=== PATIENT | female | born 1965 | race Caucasian/White ===

== ENCOUNTER → 2016-02-18 | Outpatient (CLI) | payer BC ==
--- NOTE | 2016-02-19 09:57 | MM ---
Reason for exam: screening (asymptomatic). Last mammogram was performed 5 years and 2 months ago. History: Family history of breast cancer in maternal aunt. Benign excisional biopsy of the right breast, June 15, 1998. Physical Findings: A clinical breast exam by your physician is recommended on an annual basis and results should be correlated with mammographic findings. MG Screening Mammo w CAD Bilateral CC and MLO view(s) were taken. Prior study comparison: December 07, 2010, bilateral digital screening mammo w/CAD. February 27, 2007, bilateral screening mammogram w/CAD. The breast tissue is heterogeneously dense. This may lower the sensitivity of mammography. No suspicious calcifications are seen. Increased nodularity upper outer left breast. This finding is changed when compared with previous exams. ASSESSMENT: Incomplete: need additional imaging evaluation, BI-RAD 0 RECOMMENDATION: Special view mammogram of the left breast. If lesion persists on supplemental views, image directed ultrasound is recommended. [facility] will attempt to contact patient to return for supplemental views and ultrasound if indicated.
== END | disposition home or self-care (01) ==
LOC: RADMAMWWP 10:47
PROVIDERS: ATTEND Obstetrics & Gynecology
DX: Z12.31 Encounter for screening mammogram for malignant neoplasm of breast (principal); Z80.3 Family history of malignant neoplasm of breast

== ENCOUNTER → 2016-02-26 | Outpatient (CLI) | payer BC ==
--- NOTE | 2016-02-26 11:39 | MM ---
Reason for exam: additional evaluation requested from abnormal screening. Last mammogram was performed less than 1 month ago. History: Family history of breast cancer in maternal aunt. Benign excisional biopsy of the right breast, June 15, 1998. Physical Findings: Nurse did not find any significant physical abnormalities on exam. MG 3D Work Up W/Cad LT CC and MLO view(s) were taken of the left breast. Prior study comparison: February 18, 2016, bilateral MG screening mammo w CAD. December 07, 2010, bilateral digital screening mammo w/CAD. Persistent ill defined density upper outer quadrant left breast, 9.5cm from nipple. These results were verbally communicated with the patient and result sheet given to the patient on 02/26/16. ASSESSMENT: Incomplete: need additional imaging evaluation, BI-RAD 0 RECOMMENDATION: Ultrasound of the left breast.
--- NOTE | 2016-02-26 11:41 | USB ---
Reason for exam: additional evaluation requested from abnormal screening. History: Family history of breast cancer in maternal aunt. Benign excisional biopsy of the right breast, June 15, 1998. US Breast Workup Limited LT Left breast ultrasound demonstrates a 0.4 x 0.3 x 0.4cm oval, cystic lesion at 1 o'clock. These results were verbally communicated with the patient and result sheet given to the patient on 02/26/16. ASSESSMENT: Probably benign, BI-RAD 3 RECOMMENDATION: Follow-up diagnostic mammogram and ultrasound of the left breast in 6 months.
== END | disposition home or self-care (01) ==
LOC: RADMAMWWP 10:06
PROVIDERS: ATTEND Obstetrics & Gynecology
DX: R92.8 Other abnormal and inconclusive findings on diagnostic imaging of breast (principal)
CPT/HCPCS: 76642; G0206; G0279

== ENCOUNTER → 2017-09-18 | Outpatient (CLI) | payer BC ==
--- NOTE | 2017-09-18 15:46 | XR ---
EXAMINATION TYPE: XR ankle complete RT DATE OF EXAM: 09/18/2017 COMPARISON: NONE HISTORY: pain and swelling FINDINGS: Three views of the ankle demonstrate the ankle mortise to be intact and symmetric. The joint spaces are preserved. The osseous structures are intact. Soft tissue swelling noted. IMPRESSION: 1. No definite acute fracture or dislocation, if symptoms persist follow-up study in 7 to 10 days wou ld be suggested.
== END | disposition home or self-care (01) ==
LOC: RADXRMAIN 15:23
PROVIDERS: ATTEND Family Medicine
DX: M25.571 Pain in right ankle and joints of right foot (principal)

== ENCOUNTER → 2017-09-27 | Outpatient (CLI) | payer BC ==
[2017-09-27 12:56] LABS: Basophils % (A) 0 %; Eosinophils # (A) 0.1 k/uL (0-0.7); Eosinophils % (A) 1 %; HCT 41.2 % (34.0-46.0); HGB 13.2 gm/dL (11.4-16.0); Lymphocytes # (A) 1.6 k/uL (1.0-4.8); Lymphocytes % (A) 26 %; MCH 30.5 pg (25.0-35.0); MCHC 32.1 g/dL (31.0-37.0); MCV 95.2 fL (80.0-100.0); Mean Platelet Volume 6.9; Monocytes # (A) 0.5 k/uL (0-1.0); Monocytes % (A) 8 %; Neutrophils % (A) 63 %; Platelet Count 281 k/uL (150-450); RBC 4.33 m/uL (3.80-5.40); WBC 6.3 k/uL (3.8-10.6)
[2017-09-27 14:31] LABS: Erythrocyte Sedimentation Rate 9 mm/hr (0-20)
[2017-09-27 19:01] LABS: Rheumatoid Factor 8 IU/mL (0-15)
[2017-09-28 12:15] LABS: HLA B27 NEGATIVE
== END | disposition home or self-care (01) ==
LOC: LABWHC1 12:19
PROVIDERS: ATTEND Orthopaedic Surgery
DX: M25.571 Pain in right ankle and joints of right foot (principal)
CPT/HCPCS: 36415; 85025; 85652; 86038; 86140; 86431; 86812

== ENCOUNTER 2017-11-01 08:27 | Day surgery (SDC) | payer BC ==
[2017-10-27 15:51] VITALS: BMI 25.0
[~2017-11-01 08:27] MED LIST: HYDROmorphone 0.5 MG/0.5 ML SYRINGE IVP PRN; LACTATED RINGERS 1,000 ML IV SCH; LIDOCAINE 1% 20 ML VIAL (10MG/ML) FOR IV START INTRADERMA PRN
[2017-11-01 09:40] VITALS: RESP 16; TEMP 98.1
[2017-11-01] MEDS ORDERED: PROPOFOL 10 MG/ML 20 ML VIAL IV ONE (09:56)
[2017-11-01] MEDS ORDERED: LIDOCAINE 1% INJ 10MG/ML (20 ML MDV) ONE (09:56)
--- NOTE | 2017-11-01 10:08 | P.PCN ---
Date of Procedure: 11/01/17 Procedure(s) Performed: BRIEF HISTORY: Patient is a 51-year-old, pleasant,, scheduled for an upper endoscopy as a part of value should a history of GERD and intermittent dysphagia to solids. PROCEDURE PERFORMED: Esophagogastroduodenoscopy with biopsy. PREOPERATIVE DIAGNOSIS: She of GERD/intermittent dysphagia to solids. IV sedation per anesthesia. PROCEDURE: After informed consent was obtained, the patient was brought into the endoscopy unit. IV sedation was administered by Anesthesia under continuous monitoring. Initially the Olympus GIF-140 video endoscope was inserted into the mouth. Esophagus intubated without any difficulty. It was gradually advanced into the stomach and duodenum and carefully examined. The bulb and the second part of the duodenum appeared normal. The scope at this time was withdrawn to the stomach, adequately insufflated with air, and upon careful examination, mucosa of the antrum, had scattered erosions and biopsies were done from this area. The body, cardia and the fundus appeared normal. The scope was then withdrawn into the esophagus. The GE junction was located at 39 cm from the incisors. There was once were visualized and the GE junction consistent with LA grade a reflux esophagitis. The esophagus appeared normal. There were no esophageal stricture seen and the patient tolerated the procedure well. IMPRESSION: 1. Normal-appearing esophagus with no evidence of esophageal stricture. Mild reflux esophagitis. 2. Antral erosive gastritis. RECOMMENDATIONS: The findings of this examination were discussed with the patient well as his family. She will continue with omeprazole 20 mg daily and follow antireflux measures. She will also advised to follow with the biopsy results. She'll be seen in the office in 3-4 weeks.
[2017-11-01 10:33] VITALS: PULSE 56
[2017-11-01 10:56] VITALS: BP 120/60
== END 2017-11-01 11:12 | disposition home or self-care (01) ==
LOC: ORWHC2ENDO 08:27
PROVIDERS: ATTEND Internal Medicine Gastroenterology
DX: K29.50 Unspecified chronic gastritis without bleeding (principal); K21.0 Gastro-esophageal reflux disease with esophagitis; E78.5 Hyperlipidemia, unspecified; E07.9 Disorder of thyroid, unspecified; Z79.890 Hormone replacement therapy; Z79.899 Other long term (current) drug therapy
CPT/HCPCS: 81025; 88305; 43239; J2001; J2704

== ENCOUNTER → 2018-07-18 | Outpatient (CLI) | payer BC ==
--- NOTE | 2018-07-18 11:12 | MM ---
Reason for exam: additional evaluation requested from prior study. Last mammogram was performed 2 years and 5 months ago. History: Patient history of other cancer. Family history of breast cancer in maternal aunt. Benign excisional biopsy of the right breast, June 15, 1998. Physical Findings: Nurse did not find any significant physical abnormalities on exam. MG 3D Diag Mammo W/Cad CARTER Bilateral CC and MLO view(s) were taken. Prior study comparison: February 26, 2016, left breast MG 3d work up w/cad LT. February 18, 2016, bilateral MG screening mammo w CAD. The breast tissue is heterogeneously dense. This may lower the sensitivity of mammography. No suspicious abnormality. Stable left lateral posterior depth asymmetry. These results were verbally communicated with the patient and result sheet given to the patient on 07/18/18. ASSESSMENT: Benign, BI-RAD 2 RECOMMENDATION: Routine screening mammogram of both breasts in 1 year.
--- NOTE | 2018-07-18 11:13 | USB ---
Reason for exam: additional evaluation requested from prior study. History: Patient history of other cancer. Family history of breast cancer in maternal aunt. Benign excisional biopsy of the right breast, June 15, 1998. US Breast LT Left complete breast ultrasound includes all four quadrants, the retroareolar region and axilla. Finding demonstrates a 0.5 x 0.4 x 0.5cm benign, cystic lesion at 1 o'clock. These results were verbally communicated with the patient and result sheet given to the patient on 07/18/18. ASSESSMENT: Benign, BI-RAD 2 RECOMMENDATION: Routine screening mammogram of both breasts in 1 year.
== END | disposition home or self-care (01) ==
LOC: RADMAMWWP 09:18
PROVIDERS: ATTEND Obstetrics & Gynecology
DX: R92.8 Other abnormal and inconclusive findings on diagnostic imaging of breast (principal)
CPT/HCPCS: 77062; 77066

== ENCOUNTER → 2018-11-01 | Outpatient (CLI) | payer BC ==
--- NOTE | 2018-11-02 09:41 | XR ---
EXAMINATION TYPE: XR thoraco lumbar junction DATE OF EXAM: 11/01/2018 COMPARISON: NONE HISTORY: Back pain TECHNIQUE: 2 views submitted of the thoracolumbar junction FINDINGS: Surgical clips in the gallbladder fossa. Vertebral body height is maintained. Mild anterior hypertrophic spurring. Disc spaces preserved. Schmorl's node involving the inferior endplate of T12 noted. No compression deformities. Visualized pedicles intact. IMPRESSION: Multilevel hypertrophic changes. Consider follow-up MRI.
== END | disposition home or self-care (01) ==
LOC: RADXRMAIN 17:14
PROVIDERS: ATTEND Family Medicine
DX: M54.5 Low back pain (principal)
CPT/HCPCS: 72080

== ENCOUNTER → 2022-01-10 | Outpatient (CLI) | payer BC ==
--- NOTE | 2022-01-11 10:55 | MM ---
Reason for Exam: Screening (asymptomatic). Last mammogram was performed 3 year(s) and 6 month(s) ago. Patient History: Menarche at age 12. First Full-Term at age 19. Postmenopausal. Other cancer, age 50. 06/15/1998, Benign Excisional Biopsy on the right side. Maternal aunt had breast cancer, age 37. Risk Values: Bushra 5 year model risk: 1.3%. NCI Lifetime model risk: 7.4%. Prior Study Comparison: 02/18/2016 Bilateral Screening Mammogram, [facility]. 02/26/2016 Left Diagnostic Mammogram, [facility]. 07/18/2018 Bilateral Diagnostic Mammogram, [facility]. Tissue Density: The breast tissue is heterogeneously dense. This may lower the sensitivity of mammography. Findings: Analyzed By CAD. Unchanged excisional biopsy change anterior right breast. Asymmetric density posterior central right cc view incompletely disperses on 3-D images. This may represent superimposition shadow but further evaluation is recommended. Additional nodularity lateral posterior right cc view not well seen previously. A few punctate calcifications have developed central posterior right cc view. These do not clearly comprise a group at this time. Nodularity lower inner quadrant left breast was present on 2018 suggesting a benign etiology, better seen on the MLO view now. Otherwise, no significant change. Overall Assessment: Incomplete: need additional imaging evaluation, BI-RAD 0 Management: Special View Mammogram of the right breast. Including spot 3-D CC, 3-D CC rolled medial, and 3-D lateral views (to include far posterior tissues). Right breast ultrasound if any persisting abnormality. [facility] will attempt to contact patient to return for supplemental views and ultrasound if indicated. Electronically signed and approved by: Anna Marie Parikh M.D. Radiologist
== END | disposition home or self-care (01) ==
LOC: RADMAMWWP 11:19
PROVIDERS: ATTEND Family Medicine
DX: Z12.31 Encounter for screening mammogram for malignant neoplasm of breast (principal); Z78.0 Asymptomatic menopausal state; Z80.3 Family history of malignant neoplasm of breast; Z98.890 Other specified postprocedural states
CPT/HCPCS: 77063; 77067

== ENCOUNTER → 2022-01-13 | Outpatient (CLI) | payer BC ==
--- NOTE | 2022-01-13 14:17 | MM ---
Reason for Exam: Additional evaluation requested from abnormal screening. Last screening mammogram was performed less than 1 month ago. Patient History: Menarche at age 12. First Full-Term at age 19. Postmenopausal. Other cancer, age 50. 06/15/1998, Benign Excisional Biopsy on the right side. Maternal aunt had breast cancer, age 37. Risk Values: Bushra 5 year model risk: 1.3%. NCI Lifetime model risk: 7.4%. Prior Study Comparison: 02/18/2016 Bilateral Screening Mammogram, [facility]. 02/26/2016 Left Diagnostic Mammogram, [facility]. 07/18/2018 Bilateral Diagnostic Mammogram, [facility]. 01/10/2022 Bilateral MG 3D screening mammo w/cad, [facility]. Tissue Density: Right: The breast tissue is heterogeneously dense. This may lower the sensitivity of mammography. Findings: Analyzed By CAD. 6 mm nodularity upper outer quadrant right breast middle to posterior depth persists. Further evaluation recommended. A second 6 mm area of nodularity is demonstrated centrally are posterior 3 to 4:00 position. Further ultrasound evaluation recommended. Overall Assessment: Incomplete: need additional imaging evaluation, BI-RAD 0 Management: Diagnostic Breast Ultrasound of the right breast. Electronically signed and approved by: Anna Marie Parikh M.D. Radiologist
== END | disposition home or self-care (01) ==
LOC: RADMAMWWP 13:15
PROVIDERS: ATTEND Family Medicine
DX: R92.8 Other abnormal and inconclusive findings on diagnostic imaging of breast (principal); Z80.3 Family history of malignant neoplasm of breast; Z78.0 Asymptomatic menopausal state; Z98.890 Other specified postprocedural states
CPT/HCPCS: 77065

== ENCOUNTER → 2022-01-21 | Outpatient (CLI) | payer BC ==
[2022-01-21 08:55] VITALS: BP 114/69; PULSE 74; RESP 16; TEMP 97.5
--- NOTE | 2022-01-21 09:46 | P.GSHP ---
History of Present Illness H&P Date: 01/21/22 Chief Complaint: abnormal right breast mammogram Suzie is a 56 year old white female seen in consultation for DR. Gale regarding a mammographic abnormality in her right breast. She had a bilateral mammogram performed on . This revealed some areas of concern in the right breast for which [place] [id number] followed by an ultrasound of the right breast. On the diagnostic mammogram there was a 6 mm nodular upper outer quadrant right breast middle to posterior duct lesion. A second 6 mm area of nodularity was demonstrated centrally. Ultrasound revealed a 6 mm hypoechoic lesion at the 3 o'clock position. The second area did not show any lesion of concern radiographically. The recommendation was for ultrasound-guided core biopsy of the area of concern at the 3 o'clock position in a 6 month follow-up for the area of asymmetry. Following the ultrasound core biopsy a radiograph to assure that the clip was in the correct lesion was recommended. The patient does not feel any lumps masses or nodules of concern in either breast. She is not complaining of any nipple discharge or skin changes. She has had a right breast biopsy in her 20's it was benign. She has not had any recent trauma or infection in her breast. Caffeine:1/2 cup/day nicotine: none stopped 12 years ago; used to smoke 1 PPD for 30 years chocolate: weekly BCP: used for 5 years in her 20's Family History: dad: lung cancer maternal aunt: breast cancer at 40 Hormonal History: menarche: 14 breast fed: no, age at first : 19 menopause: 54 hormones: none Surgical History: gallbladder breast biopsy Medical History: hypothyroid IBS DVT in the past 10 years ago Social History: nicotine: as above alcohol: weekly; beer drugs: Marijuana occasionally - Constitutional Constitutional: Reports sweats - EENT Eyes: denies blurred vision, denies pain Ears: deny: decreased hearing, tinnitus Ears, nose, mouth and throat: Denies headache, Denies sore throat - Breasts Breasts: bilateral: as per HPI - Cardiovascular Cardiovascular: Denies chest pain, Denies shortness of breath - Respiratory Respiratory: Denies cough, Denies 7 - Gastrointestinal Comment: IBS Gastrointestinal: Denies abdominal pain, Denies diarrhea, Denies nausea, Denies vomiting - Genitourinary (Female) Genitourinary: Denies dysuria, Denies hematuria - Menstruation Menstruation: Reports postmenopausal - Musculoskeletal Musculoskeletal: Denies myalgias - Integumentary Integumentary: Reports rash, Denies pruritus - Neurological Comment: neuropathy in her feet Neurological: Denies numbness, Denies weakness - Psychiatric Psychiatric: Reports anxiety - Endocrine Endocrine: Denies fatigue, Denies weight change - Hematologic/Lymphatic Comment: none - Allergic/Immunologic Allergic/Immunologic: Reports as per HPI Past Medical History Past Medical History: Deep Vein Thrombosis (DVT), GERD/Reflux, Thyroid Disorder Additional Past Medical History / Comment(s): irritable bowel syndrome History of Any Multi-Drug Resistant Organisms: None Reported, C-DIFF Date of last positivie culture/infection: 2009? MDRO Source:: stool Past Surgical History: Breast Surgery, Cholecystectomy Additional Past Surgical History / Comment(s): Right breast excisional biopsy in her 20's Past Anesthesia/Blood Transfusion Reactions: No Reported Reaction Past Psychological History: Anxiety Smoking Status: Former smoker Past Alcohol Use History: Occasional Additional Past Alcohol Use History / Comment(s): smoked 32 years 1 ppd quit 2009 Past Drug Use History: Marijuana Additional Drug Use History / Comment(s): occasional marijuana gummy for sleep - Past Family History Mother Family Medical History: No Reported History Medications and Allergies Home Medications Medication Instructions Recorded Confirmed Type Levothyroxine Sodium [Synthroid] 125 mcg PO DAILY 06/25/14 01/21/22 History Loperamide HCl [Imodium A-D] 2 mg PO DAILY PRN 10/27/17 01/21/22 History Cholestyramine (with Sugar) 378 gm PO BID 01/21/22 01/21/22 History [Cholestyramine Powder] Allergies Allergy/AdvReac Type Severity Reaction Status Date / Time No Known Allergies Allergy Verified 01/21/22 08:52 Surgical - Exam Vital Signs Temp Pulse Resp BP Pulse Ox 97.5 F L 74 16 114/69 99 01/21/22 08:53 01/21/22 08:53 01/21/22 08:53 01/21/22 08:53 01/21/22 08:53 - General no distress - Eyes normal ocular movement - ENT no hearing loss - Neck trachea midline - Respiratory normal respiratory effort - Cardiovascular Rhythm: regular Heart Sounds: normal: S1, S2 - Abdomen Abdomen: soft, non tender, no guarding, no rigid, no rebound - Integumentary normal turgor - Neurologic no disoriented, no combative - Musculoskeletal normal gait - Psychiatric oriented to time, oriented to person, oriented to place, speech is normal, memory intact Breast Exam: BRA: 36D inspection: Bilateral grade 2 ptosis Palpation: Right breast: Well-healed scar from prior biopsy in the periareolar region, multiple positional exam fibrocystic changes dense breasts no dominant masses or nodules of concern, particularly attention to the 3:00 area did not reveal any specific lesions of concern Right axilla: No adenopathy of concern Left breast: Multi-positional exam no dominant masses or nodules of concern, de nse breast, fibrocystic changes Left axilla: No adenopathy of concern Results Mammogram and ultrasound reviewed with Dr. Morin Assessment and Plan Assessment: Impression: Mammographic/ultrasound abnormality right breast at 3 o'clock position, asymmetry also noted on the diagnostic mammogram of the right breast which is going to be followed in 6 months Audible bowel syndrome Hypothyroid Plan: Ultrasound-guided core biopsy lesion 3:00 right breast to be followed by a mammogram showing that the clip was in the area of the mammographic abnormality Second area of asymmetry in the right breast to be followed in 6 months with a diagnostic mammogram Patient follow-up after ultrasound-guided core biopsy Risk and benefits of the procedure discussed with the patient. She understands and wishes to proceed. Cc: Dr. Gale
== END ==
LOC: WWCWWP 08:44
PROVIDERS: ATTEND Surgery
DX: N60.11 Diffuse cystic mastopathy of right breast (principal); N60.12 Diffuse cystic mastopathy of left breast; E03.9 Hypothyroidism, unspecified; K58.9 Irritable bowel syndrome, unspecified; Z79.890 Hormone replacement therapy; I82.409 Acute embolism and thrombosis of unspecified deep veins of unspecified lower extremity; Z80.0 Family history of malignant neoplasm of digestive organs; Z80.3 Family history of malignant neoplasm of breast; Z87.891 Personal history of nicotine dependence

== ENCOUNTER → 2022-01-27 | Day surgery (SDC) | payer BC ==
--- NOTE | 2022-02-07 14:09 | MM ---
Reason for Exam: Clinical finding. Last screening mammogram was performed less than 1 month ago. Patient History: Menarche at age 12. First Full-Term at age 19. Postmenopausal. Other cancer, age 50. 06/15/1998, Benign Excisional Biopsy on the right side. Maternal aunt had breast cancer, age 37. Risk Values: Bushra 5 year model risk: 1.3%. NCI Lifetime model risk: 7.4%. Prior Study Comparison: 07/18/2018 Bilateral Diagnostic Mammogram, [facility]. 01/10/2022 Bilateral MG 3D screening mammo w/cad, [facility]. 01/13/2022 Right MG work up mamm w CAD RT, [facility]. Tissue Density: Right: The breast tissue is heterogeneously dense. This may lower the sensitivity of mammography. Pathology Description: Location: 3 o'clock. Marker Left Behind. Needle Type: Mammotome Cores: 6 Gauge: 13 The procedure of ultrasound guided core biopsy was explained to the patient. Benefits, alternatives, and risks were discussed. An informed consent was then obtained. The hypoechoic area at the 3:00 position was identified with difficulty given its vague appearance. This is targeted for biopsy. The patient was placed in supine positioning for imaging and for the procedure. The overlying skin was prepped and draped in usual sterile fashion. Lidocaine was used as anesthetic into the skin and subcutaneous tissue up to area of concern in the 3:00 left breast. Under ultrasound guidance, a 13-gauge vacuum-assisted mammotome biopsy gun was used to obtain 6 core samples. Following this, a Hydromark butterfly clip was left at the site of biopsy. The patient tolerated the procedure well without any immediate complication. The patient was kept in the radiology department for short stay after the procedure and then discharged home in stable condition. Postprocedure mammogram: The patient was transferred to mammography for physician ordered post procedure mammogram for clip placement verification. Post procedure mammogram shows clip more anterior to the questioned focal asymmetry. A second far lateral and posterior asymmetric density is also redemonstrated. Both of these should be reassessed at a 6 month follow-up. Impression: Uncomplicated ultrasound guided core biopsy of a very vague area in the 3:00 position of the right breast. After clip placement, we see that this is discordant with the far posterior mammographic finding. An additional asymmetric density is present posteriorly and laterally. If benign results, six-month follow-up diagnostic right breast mammogram is advised for both of these areas. Full pathology results to follow. Pathology Results: Result: Benign, Fibrocystic change. RIGHT BREAST, 3:00 POSITION, ULTRASOUND GUIDED CORE BIOPSY: Fibrocystic change with columnar cell change, fibrosis, and rare minute microcalcification (see note). Current specimen negative for diagnostic in situ or invasive carcinoma. Overall Assessment: Benign Assessment: MG diagnostic mammo RT wo CAD - Right: Benign, BI-RAD 2. Management: Surgical Consultation of the right breast. Electronically signed and approved by: Anna Marie Parikh M.D. Radiologist
== END ==
LOC: RADUSWWP 12:26
PROVIDERS: ATTEND Surgery
DX: R92.0 Mammographic microcalcification found on diagnostic imaging of breast (principal)
CPT/HCPCS: 88305; 77065; 19083; A4648

== ENCOUNTER → 2023-01-19 | Outpatient (CLI) | payer BC ==
--- NOTE | 2023-01-19 11:30 | XR ---
EXAMINATION TYPE: XR cervical spine limited DATE OF EXAM: 01/19/2023 COMPARISON: NONE HISTORY: Pain TECHNIQUE: 3 views are submitted. FINDINGS: The odontoid is intact. There are no compression deformities. The prevertebral soft tissue structur es are within normal limits. There is straightening of the cervical spine with moderate degenerative disc disease C5-C6 and mild changes C6-C7. IMPRESSION: 1. Multilevel degenerative disc disease most marked at C5-C6. Consider follow-up MRI.
== END | disposition home or self-care (01) ==
LOC: RADXRMAIN 10:51
PROVIDERS: ATTEND Family Medicine
DX: M50.322 Other cervical disc degeneration at C5-C6 level (principal)
CPT/HCPCS: 72040

== ENCOUNTER → 2023-07-05 | Outpatient (CLI) | payer BC ==
--- NOTE | 2023-07-05 18:10 | MM ---
Reason for Exam: Follow-up at short interval from prior study. Last mammogram was performed 1 year(s) and 5 month(s) ago. Patient History: Menarche at age 12. First Full-Term at age 19. Postmenopausal. 01/27/2022, Benign US biopsy breast VAD RT on the right side. 06/15/1998, Benign Excisional Biopsy on the right side. Maternal aunt had breast cancer, age 37. Risk Values: Bushra 5 year model risk: 1.7%. NCI Lifetime model risk: 9.1%. Prior Study Comparison: 02/18/2016 Bilateral Screening Mammogram, [facility]. 07/18/2018 Bilateral Diagnostic Mammogram, [facility]. 01/10/2022 Bilateral MG 3D screening mammo w/cad, [facility]. 01/13/2022 Right MG work up mamm w CAD RT, [facility]. 01/27/2022 Right MG diagnostic mammo RT wo CAD, [facility]. Tissue Density: The breasts are heterogeneously dense, which may obscure small masses. Findings: Analyzed By CAD. The pattern is symmetrical. There are grouped calcifications within the inner posterior right breast, present previously. There heterogenous calcifications within the posterior 6:00 left breast. These are not identified previously. These appear to be visualized on this examination due to good technique, these may not within the field of view previously. These are not necessarily new visualized first on this exam. Surgical evaluation is recommended. Overall Assessment: Probably benign, BI-RAD 3 Management: Surgical Consultation of the left breast. A negative mammogram report should not preclude additional follow up of suspicious palpable abnormalities. Patient should continue monthly self breast exam. A clinical breast exam by your physician is recommended on an annual basis and results should be correlated with mammographic findings. Note on Bushra scores and lifetime risk: 1. A Bushra score greater than 3% is considered moderate risk. If this is the case, consider specialist referral to assess eligibility for a risk reducing agent. 2. If overall lifetime risk for the development of breast cancer is 20% or higher, the patient may qualify for future screening with alternating mammogram and breast MRI. Electronically signed and approved by: Lonny Persaud D.O. Radiologis
== END | disposition home or self-care (01) ==
LOC: RADMAMWWP 14:14
PROVIDERS: ATTEND Family Medicine
DX: R92.333 Mammographic heterogeneous density, bilateral breasts (principal); Z78.0 Asymptomatic menopausal state; Z80.3 Family history of malignant neoplasm of breast
CPT/HCPCS: 77062; 77066

== ENCOUNTER → 2023-08-03 | Outpatient (CLI) | payer BC ==
[2023-08-03 11:29] VITALS: PULSE 67
[2023-08-03 11:57] VITALS: BP 129/85; RESP 16; TEMP 98.4
--- NOTE | 2023-08-03 11:58 | P.PN ---
Subjective Progress Note Date: 08/03/23 Principal diagnosis: Abnormal left breast mammogram/questionable nodular density being followed in the right breast Suzie is a 57-year-old white female who was initially seen in consultation for Dr. Aparicio regarding a mammographic abnormality in her right breast. This was related to a bilateral mammogram on 01-10-2022. An ultrasound core biopsy of the right breast was performed on 01-27-2022 which was benign. However the concern was that the ultrasound core biopsy was not not at the site of the nodular area seen on mammogram. This was followed and the nodule appeared to be no longer present. However upon review review of the mammograms with Dr. Markus Tang from radiology there is concern that the radiograph was not far enough posterior to evaluate for the nodule. Additionally on a recent mammogram of 07-05-2023 a new area of microcalcification is identified posteriorly in the left breast. There is an area of calcification in the right breast which was seen as well on this mammogram but it appears to be stable radiographically. Right breast open biopsy in the remote past when she was in her 20s and this was benign. She has not had any other breast surgery. A squamous cell cancer removed from her back. She does not feel any lumps masses or nodules of concern in either breast. Mammogram personally reviewed with Dr. Sadler from radiology. Recommendation for both breast MRI. Stereotactic core biopsy microcalcifications left breast if these cannot be done via stereotactic biopsy secondary to the position the needle localization and resection in the operating room has been recommended. Caffeine:1/2 cup/day nicotine: none stopped 14 years ago; used to smoke 1 PPD for 30 years chocolate: weekly BCP: used for 5 years in her 20's Family History: dad: lung cancer maternal aunt: breast cancer at 40 Hormonal History: menarche: 14 breast fed: no, age at first : 19 menopause: 54 hormones: none Surgical History: gallbladder breast biopsy squamous cell cancer removed from her back Medical History: hypothyroid IBS DVT in the past 10 years ago Social History: nicotine: as above alcohol: weekly; beer drugs: Marijuana occasionally - Constitutional Constitutional: Reports sweats - EENT Eyes: denies blurred vision, denies pain Ears: deny: decreased hearing, tinnitus Ears, nose, mouth and throat: Denies headache, Denies sore throat - Breasts Breasts: bilateral: as per HPI - Cardiovascular Cardiovascular: Denies chest pain, Denies shortness of breath - Respiratory Respiratory: Denies cough - Gastrointestinal Comment: IBS Gastrointestinal: Denies abdominal pain, Denies diarrhea, Denies nausea, Denies vomiting - Genitourinary (Female) Genitourinary: Denies dysuria, Denies hematuria - Menstruation Menstruation: Reports postmenopausal - Musculoskeletal Musculoskeletal: Denies myalgias - Integumentary Integumentary: Reports rash, Denies pruritus - Neurological Comment: neuropathy in her feet Neurological: Denies numbness, Denies weakness - Psychiatric Psychiatric: Reports anxiety - Endocrine Endocrine: Denies fatigue, Denies weight change - Hematologic/Lymphatic Comment: none - Allergic/Immunologic Allergic/Immunologic: Reports as per HPI Past Medical History Past Medical History: Deep Vein Thrombosis (DVT), GERD/Reflux, Thyroid Disorder Additional Past Medical History / Comment(s): irritable bowel syndrome History of Any Multi-Drug Resistant Organisms: None Reported, C-DIFF Date of last positivie culture/infection: 2009? MDRO Source:: stool Past Surgical History: Breast Surgery, Cholecystectomy Additional Past Surgical History / Comment(s): Right breast excisional biopsy in her 20's Past Anesthesia/Blood Transfusion Reactions: No Reported Reaction Past Psychological History: Anxiety Smoking Status: Former smoker Past Alcohol Use History: Occasional Additional Past Alcohol Use History / Comment(s): smoked 32 years 1 ppd quit 2009 Past Drug Use History: Marijuana Additional Drug Use History / Comment(s): occasional marijuana gummy for sleep - Past Family History Mother Family Medical History: No Reported History Medications and Allergies Home Medications Medication Instructions Recorded Confirmed Type Levothyroxine Sodium [Synthroid] 125 mcg PO DAILY 06/25/14 01/21/22 History Loperamide HCl [Imodium A-D] 2 mg PO DAILY PRN 10/27/17 01/21/22 History Cholestyramine (with Sugar) 378 gm PO BID 01/21/22 01/21/22 History [Cholestyramine Powder] Allergies Allergy/AdvReac Type Severity Reaction Status Date / Time No Known Allergies Allergy Verified 01/21/22 08:52 Objective - Vital Signs Vital signs: Vital Signs Temp 97.9 F 08/03/23 11:27 Pulse 67 08/03/23 11:27 Resp 17 08/03/23 11:27 BP 139/83 08/03/23 11:27 Pulse Ox 96 08/03/23 11:27 FiO2 Intake & Output 08/02/23 08/03/23 08/03/23 18:59 06:59 18:59 Weight 86.183 kg - Constitutional General appearance: Present: cooperative - EENT Eyes: Present: EOMI ENT: Present: hearing grossly normal - Neck Neck: Present: normal ROM - Respiratory Respiratory: bilateral: CTA - Cardiovascular Rhythm: regular Heart sounds: normal: S1, S2 - Integumentary Integumentary: Present: normal turgor - Musculoskeletal Musculoskeletal: Present: gait normal - Psychiatric Psychiatric: Present: A&O x's 3, appropriate affect, intact judgment & insight - Additional findings Additional findings: Breast Exam: BRA: 36D inspection: Bilateral grade 2 ptosis; left breast slightly larger than right breast Palpation: Right breast: Well-healed scar from prior biopsy in the periareolar region, multiple positional exam fibrocystic changes dense breasts no dominant masses or nodules of concern Right axilla: No adenopathy of concern Left breast: Multi-positional exam no dominant masses or nodules of concern, dense breast, fibrocystic changes Left axilla: No adenopathy of concern Assessment and Plan Assessment: Impression: Nodule right breast question if this can be seen on the recent mammogram therefore MRI has been recommended New area of calcifications left breast fibrocystic breast changes Plan: Breast MRI to evaluate area of possible nodule right breast Stereotactic core biopsy left breast/this is quite far posterior and if we are unable to do it right via stereotactic core biopsy the needle localization and resection has been recommended This will be done after the patient returns from vacation. She will be gone for approximately 3 weeks. Cc: Dr. Gale
== END ==
LOC: WWCWWP 10:06
PROVIDERS: ATTEND Surgery
DX: R92.0 Mammographic microcalcification found on diagnostic imaging of breast (principal); N60.11 Diffuse cystic mastopathy of right breast; N63.10 Unspecified lump in the right breast, unspecified quadrant; Z80.3 Family history of malignant neoplasm of breast; Z87.891 Personal history of nicotine dependence; Z98.890 Other specified postprocedural states

== ENCOUNTER → 2023-08-30 | Outpatient (CLI) | payer BC ==
--- NOTE | 2023-09-04 13:34 | BMR ---
EXAM DATE: 08/30/2023 EXAM DESCRIPTION: MRI-Breast Bilat (W/WO Contrast) INDICATION: Abnormal mammogram left breast, left breast calcifications COMPARISON: PRIOR MRIs: None available. Correlation to mammograms: 01/10/2022, 01/13/2022, 07/05/2023. Correlation to ultrasound: None available. CONTRAST: 7 cc Gadavist IV gadolinium contrast TECHNIQUE: Study was performed at [facility] with Radiologic interpretation by [facility] Multiplanar multisequence MR imaging of both breasts was performed with a dedicated breast coil. Images were obtained before and after administration of IV gadolinium, using the standard breast mass protocol. Computer aided detection was utilized for interpretation. FINDINGS: LMP: Postmenopausal General breast composition: There are scattered areas of fibroglandular tissue Background parenchymal enhancement: Mild RIGHT BREAST: The T2 weighted series shows no areas of abnormal signal intensity. Review of the dynamic series shows several scattered foci of enhancement none of which appear more suspicious than any other. LEFT BREAST: The T2 weighted series shows no areas of abnormal signal intensity. Review of the dynamic series shows several scattered foci of enhancement none of which appear more suspicious than any other. No discrete abnormal enhancement to correspond to mammographically identified calcifications in the left breast at 6 o'clock posterior depth. LYMPH NODES: There is no evidence of internal mammary or axillary adenopathy. Miscellaneous findings:Hepatic cysts. IMPRESSION: RIGHT BREAST: No MR evidence of malignancy. LEFT BREAST: No discrete abnormal enhancement to correspond to mammographically identified calcifications in the left breast at 6 o'clock posterior depth. Stereotactic biopsy could be attempted. If an accessible, six-month follow-up mammogram is recommended given relatively coarse and benign-appearing cysts of calcifications. OVERALL ASSESSMENT -- BI-RADS 3: Probably benign Short Interval Followup Recommended [facility]
== END | disposition home or self-care (01) ==
LOC: RADMRIMAIN 08:21
PROVIDERS: ATTEND Surgery
DX: N63.0 Unspecified lump in unspecified breast (principal); R92.1 Mammographic calcification found on diagnostic imaging of breast; R92.333 Mammographic heterogeneous density, bilateral breasts
CPT/HCPCS: 77049; A9585

== ENCOUNTER → 2023-09-07 | Outpatient (CLI) | payer BC ==
[2023-09-07 11:49] VITALS: BP 121/74; PULSE 111; RESP 18; TEMP 97.9
--- NOTE | 2023-09-07 11:51 | P.PN ---
Subjective Progress Note Date: 09/07/23 Principal diagnosis: abnormal left breast mammogram 08/03/23 Principal diagnosis: Abnormal left breast mammogram/questionable nodular density being followed in the right breast Suzie is a 57-year-old white female who was initially seen in consultation for Dr. Aparicio regarding a mammographic abnormality in her right breast. This was related to a bilateral mammogram on 01-10-2022. An ultrasound core biopsy of the right breast was performed on 01-27-2022 which was benign. However the concern was that the ultrasound core biopsy was not not at the site of the nodular area seen on mammogram. This was followed and the nodule appeared to be no longer present. However upon review review of the mammograms with Dr. Markus Tang from radiology there is concern that the radiograph was not far enough posterior to evaluate for the nodule. Additionally on a recent mammogram of 07-05-2023 a new area of microcalcification is identified posteriorly in the left breast. There is an area of calcification in the right breast which was seen as well on this mammogram but it appears to be stable radiographically. Right breast open biopsy in the remote past when she was in her 20s and this was benign. She has not had any other breast surgery. A squamous cell cancer removed from her back. She does not feel any lumps masses or nodules of concern in either breast. Mammogram personally reviewed with Dr. Sadler from radiology. Recommendation for both breast MRI. Stereotactic core biopsy microcalcifications left breast if these cannot be done via stereotactic biopsy secondary to the position the needle localization and resection in the operating room has been recommended. 09-07-23 bilateral MRI done on 08-30-23, personally reviewed and discussed with Dr. Sadler recommend stero biopsy of the left breast, if unable to do as the calcification are very posterior, than recommend needle localization and resection no lesion of concern noted in the right breast Caffeine:1/2 cup/day nicotine: none stopped 14 years ago; used to smoke 1 PPD for 30 years chocolate: weekly BCP: used for 5 years in her 20's Family History: dad: lung cancer maternal aunt: breast cancer at 40 Hormonal History: menarche: 14 breast fed: no, age at first : 19 menopause: 54 hormones: none Surgical History: gallbladder breast biopsy squamous cell cancer removed from her back Medical History: hypothyroid IBS DVT in the past 10 years ago Social History: nicotine: as above alcohol: weekly; beer drugs: Marijuana occasionally - Constitutional Constitutional: Reports sweats - EENT Eyes: denies blurred vision, denies pain Ears: deny: decreased hearing, tinnitus Ears, nose, mouth and throat: Denies headache, Denies sore throat - Breasts Breasts: bilateral: as per HPI - Cardiovascular Cardiovascular: Denies chest pain, Denies shortness of breath - Respiratory Respiratory: Denies cough - Gastrointestinal Comment: IBS Gastrointestinal: Denies abdominal pain, Denies diarrhea, Denies nausea, Denies vomiting - Genitourinary (Female) Genitourinary: Denies dysuria, Denies hematuria - Menstruation Menstruation: Reports postmenopausal - Musculoskeletal Musculoskeletal: Denies myalgias - Integumentary Integumentary: Reports rash, Denies pruritus - Neurological Comment: neuropathy in her feet Neurological: Denies numbness, Denies weakness - Psychiatric Psychiatric: Reports anxiety - Endocrine Endocrine: Denies fatigue, Denies weight change - Hematologic/Lymphatic Comment: none - Allergic/Immunologic Allergic/Immunologic: Reports as per HPI Past Medical History Past Medical History: Deep Vein Thrombosis (DVT), GERD/Reflux, Thyroid Disorder Additional Past Medical History / Comment(s): irritable bowel syndrome History of Any Multi-Drug Resistant Organisms: None Reported, C-DIFF Date of last positivie culture/infection: 2009? MDRO Source:: stool Past Surgical History: Breast Surgery, Cholecystectomy Additional Past Surgical History / Comment(s): Right breast excisional biopsy in her 20's Past Anesthesia/Blood Transfusion Reactions: No Reported Reaction Past Psychological History: Anxiety Smoking Status: Former smoker Past Alcohol Use History: Occasional Additional Past Alcohol Use History / Comment(s): smoked 32 years 1 ppd quit 2009 Past Drug Use History: Marijuana Additional Drug Use History / Comment(s): occasional marijuana gummy for sleep - Past Family History Mother Family Medical History: No Reported History Medications and Allergies Home Medications Medication Instructions Recorded Confirmed Type Levothyroxine Sodium [Synthroid] 125 mcg PO DAILY 06/25/14 01/21/22 History Loperamide HCl [Imodium A-D] 2 mg PO DAILY PRN 10/27/17 01/21/22 History Cholestyramine (with Sugar) 378 gm PO BID 01/21/22 01/21/22 History [Cholestyramine Powder] Allergies Allergy/AdvReac Type Severity Reaction Status Date / Time No Known Allergies Allergy Verified 01/21/22 08:52 Objective - Constitutional General appearance: Present: cooperative - EENT Eyes: Present: EOMI ENT: Present: hearing grossly normal - Neck Neck: Present: normal ROM - Respiratory Respiratory: bilateral: CTA - Cardiovascular Rhythm: regular Heart sounds: normal: S1, S2 - Integumentary Integumentary: Present: normal turgor - Musculoskeletal Musculoskeletal: Present: gait normal - Psychiatric Psychiatric: Present: A&O x's 3, appropriate affect, intact judgment & insight - Additional findings Additional findings: Breast Exam: from exam 08-03-23 BRA: 36D inspection: Bilateral grade 2 ptosis; left breast slightly larger than right breast Palpation: Right breast: Well-healed scar from prior biopsy in the periareolar region, multiple positional exam fibrocystic changes dense breasts no dominant masses or nodules of concern Right axilla: No adenopathy of concern Left breast: Multi-positional exam no dominant masses or nodules of concern, dense breast, fibrocystic changes Left axilla: No adenopathy of concern Assessment and Plan Assessment: Impression: Microcalcifications of concern left breast Recent breast MRI 08-30-2023 personally reviewed with radiology no lesions of concern in the right breast, no specific lesions in the left breast however the microcalcifications are persistent and as per radiology recommendation is for stereo biopsy if this is not possible secondary to the location of the microcalcifications the needle localization and excisional biopsy Plan: Stereo biopsy left breast Possible left breast needle localization excisional biopsy Risk and benefits of the procedure discussed with the patient. Risk include but are not limited to bleeding, infection, reaction to the anesthetic. If tissue acquisition were felt to be discordant then further tissue acquisition may be necessary. CC: Dr. Gale
== END ==
LOC: WWCWWP 11:20
PROVIDERS: ATTEND Surgery
DX: R92.0 Mammographic microcalcification found on diagnostic imaging of breast (principal); Z87.891 Personal history of nicotine dependence; Z80.3 Family history of malignant neoplasm of breast

== ENCOUNTER → 2023-09-29 | Day surgery (SDC) | payer BC ==
--- NOTE | 2023-10-25 13:17 | P.PN ---
Subjective Progress Note Date: 10/25/23 Principal diagnosis: Fibrocystic breast changes Suzie is a 57-year-old female who underwent a stereotactic core biopsy of the left breast by radiology on 09-29-2023. Pathology revealed benign fibrocystic changes with columnar cell change, focal microcalcifications, focal usual ductal hyperplasia, and focal fibrosis. The radiographs were personally reviewed with Dr. Persaud from radiology who felt that this was benign concordant. Additionally although the lesion was very far posterior he felt that adequate tissue had been sampled. After review of this as well as the patient's recent MRI the recommendation was that she receive a repeat left breast mammogram in 6 months. The patient was called with the pathology results and the patient stated that she did well with the procedure however she did have some intermittent sharp discomfort at the site of the biopsy. She was recommended to come for a postprocedure visit which she declined at this time. She is recommended to have a repeat left breast mammogram and visit in 6 months. She understands this and states that she will follow-up with that visit. If she has any concerns prior then she should follow up sooner.
--- NOTE | 2023-10-27 09:00 | MM ---
Risk Values: Bushra 5 year model risk: 1.7%. NCI Lifetime model risk: 9.1%. Prior Study Comparison: 01/13/2022 Right MG work up mamm w CAD RT, [facility]. 01/27/2022 Right MG diagnostic mammo RT wo CAD, [facility]. 07/05/2023 Bilateral MG 3D diag mammo w/cad [facility], [facility]. Pathology Description: Marker Left Behind. Specimen Radiograph. Approach: Medial to Lateral Needle Type: Eviva Cores: 11 Skin Nicks: 2 Gauge: 9 The calcifications in question within the left breast were targeted by the undersigned. Procedure was performed by the undersigned. Informed consent was obtained and all of the patients questions were answered. The standard sterile technique was utilized and appropriate local anesthesia was obtained with 1% licocaine. Mammotome probe was advanced and multiple core samples were obtained and sent to pathology for interpretation. Microclip marker was deployed at the site of biopsy. Post procedural mammogram demonstrates appropriate deployment of radiopaque clip marker. The patient tolerated the procedure well and left the department in stable condition. Pathology results are pending. Impression: Successful stereotactic core biopsy left breast. Pathology Results: Result: Benign, Fibrocystic change. Pathology and radiology were reviewed. Findings are concordant. LEFT BREAST, STEREOTACTIC CORE BIOPSY: Benign fibrocystic changes with columnar cell change, focal microcalcifications, focal usual ductal hyperplasia and focal fibrosis. Overall Assessment: Benign Management: Diagnostic Mammogram of the left breast in 6 months. Electronically signed and approved by: Bruno De Santiago M.D. Radiologis
== END ==
LOC: RADMAMWWP 08:00
PROVIDERS: ATTEND Surgery
DX: N60.32 Fibrosclerosis of left breast (principal); N64.89 Other specified disorders of breast; N60.82 Other benign mammary dysplasias of left breast; R92.0 Mammographic microcalcification found on diagnostic imaging of breast; K58.9 Irritable bowel syndrome, unspecified; Z79.899 Other long term (current) drug therapy; E07.9 Disorder of thyroid, unspecified; Z79.890 Hormone replacement therapy; Z86.718 Personal history of other venous thrombosis and embolism
CPT/HCPCS: 88305